=== PATIENT | male | born 1980 | race Hispanic/Latino ===

== ENCOUNTER 2018-06-19 10:36 | Emergency (ER) | payer MEDICAID, OTHER ==
[2018-06-19 10:44] VITALS: BMI 43.2
[2018-06-19] MEDS ORDERED: Sodium Chloride 0.9% 1,000 ML IV STA (10:52)
--- NOTE | 2018-06-19 10:52 | ED PDOC ---
Arrival/HPI - History of Present Illness Narrative History of Present Illness (Text): 06/19/18 10:45 38 y/o male with PMH of substance abuse, diabetes, and testicular cancer (s/p resection last year) presents to the ED for evaluation of anxiety. Last heroin use 2 days ago, using intermittently prior to that, both heroin and prescription narcotics. States he has been experiencing withdrawal symptoms and recurrent [place] ic attacks over the last few days, including diarrhea, nausea, and abdominal cramping. Took a suboxone this morning that was given to him by a friend. No current physical complaints but wishes to speak to someone about his recent panic attacks and feeling overwhelmed. States he was unable to sleep last night. Has no PMD and is not on any medications. Denies SI, HI, hallucinations, alcohol use, fevers, chills, chest pain, diaphoresis, palpitations, SOB, headache, vision changes, dizziness, abdominal pain, N/V, or any other associated symptoms. Past Medical History - Pulmonary Hx Sleep Apnea: Yes - Musculoskeletal/Rheumatological Hx Back Pain: Yes Hx Falls: No Hx Herniated Disk: Yes - Psychiatric Hx Anxiety: Yes Hx Depression: Yes Hx Emotional Abuse: No Hx Physical Abuse: No Hx Substance Use: Yes - Suicidal Assessment Feels Threatened In Home Enviroment: No Family/Social History - Physician Review Nursing Documentation Reviewed: Yes Family/Social History: No Known Family HX Smoking Status: Current Some Days Smoker Hx Alcohol Use: Yes (occasional) Hx Substance Use: Yes Hx Substance Use Treatment: Yes Allergies/Home Meds Allergies/Adverse Reactions: Allergies Sulfa (Sulfonamide Antibiotics) Allergy (Verified 06/19/18 10:45) RASH Review of Systems - Physician Review All systems were reviewed & negative as marked: Yes - Review of Systems Constitutional: Normal. absent: Fevers Eyes: Normal. absent: Vision Changes ENT: Normal Respiratory: Normal. absent: SOB, Cough Cardiovascular: Normal. absent: Chest Pain, Palpitations, Edema, Syncope Gastrointestinal: Abdominal Pain. absent: Nausea, Vomiting Genitourinary Male: Normal. absent: Dysuria, Frequency Musculoskeletal: Normal. absent: Back Pain, Neck Pain Skin: Normal. absent: Rash, Cellulitis Neurological: Normal. absent: Headache, Dizziness Endocrine: Normal Hemo/Lymphatic: Normal Psychiatric: Anxiety, Depression. absent: Suicidal Ideation Physical Exam Vital Signs Reviewed: Yes Temperature: Afebrile Blood Pressure: Normal Pulse: Regular Respiratory Rate: Normal Appearance: Positive for: Well-Appearing, Non-Toxic, Comfortable Pain Distress: None Mental Status: Positive for: Alert and Oriented X 3 - Systems Exam Head: Present: Atraumatic, Normocephalic Pupils: Present: PERRL Extroacular Muscles: Present: EOMI Conjunctiva: Present: Normal Mouth: Present: Moist Mucous Membranes Pharnyx: Present: Normal Nose (External): Present: Atraumatic Nose (Internal): Present: Normal Inspection Neck: Present: Normal Range of Motion. No: Meningeal Signs, MIDLINE TENDERNESS, Paraspinal Tenderness Respiratory/Chest: Present: Clear to Auscultation, Good Air Exchange. No: Respiratory Distress, Accessory Muscle Use, Wheezes, Decreased Breath Sounds, Rales, Retracting, Rhonchi Cardiovascular: Present: Regular Rate and Rhythm, Normal S1, S2, Peripheal Pulses Present. No: Murmurs Abdomen: Present: Normal Bowel Sounds. No: Tenderness, Distention, Peritoneal Signs, Rebound, Guarding Back: Present: Normal Inspection. No: CVA Tenderness, Midline Tenderness, Paraspinal Tenderness Upper Extremity: Present: Normal Inspection, Normal ROM, NORMAL PULSES, Neurovascularly Intact, Capillary Refill < 2s. No: Cyanosis, Edema, Swelling, Erythema Lower Extremity: Present: Normal Inspection, NORMAL PULSES, Normal ROM, Neurovascularly Intact, Capillary Refill < 2 s. No: Edema, Swelling, Erythema Neurological: Present: GCS=15, CN II-XII Intact, Speech Normal, Motor Func Grossly Intact, Normal Sensory Function, Gait Normal, Memory Normal Skin: Present: Warm, Dry, Normal Color. No: Rashes, Hot Lymphatic: No: Cervical Adenopathy Psychiatric: Present: Alert, Oriented x 3, Normal Insight, Normal Concentration, Anxious. No: Agitated, Depressed Mood, Suicidal Ideation, Homicidal Ideation, Hallucinations Medical Decision Making ED Course and Treatment: Initial Plan: * CBC, CMP * Acetaminophen, Alcohol, Salicylate * UDS * UA * EKG * CXR * IVF * Crisis Eval No physical complaints. Patient in no acute distress, laying comfortably in stretcher. CBC: WBC 18, otherwise unremarkable CMP: Glucose 232, patient known diabetic not on medication. Otherwise unremarkable. Acetaminophen: neg Alcohol: neg Salicylate: neg UDS: opiates, methamphetamine UA: ketones, protein, otherwise wnl CXR: no active disease EKG read by ED attending Dr. Kennedy as normal. Patient medically cleared for psychiatric evaluation. 13:15 EILEEN Mcdermott evaluated patient at bedside and advises that patient is psychiatrically cleared for discharge home with diagnosis of anxiety. Given appropriate resources for followup. 13:[address] Kennedy evaluated patient at bedside after discussion of diagn ostic testing results. States patient is clear for discharge home with followup with primary doctor or clinic. Advises to prescribe Clonidine 0.1mg q8h x 7 days prn withdrawal, Immodium, Zofran, and Narcan nasal spray for emergency use. Plan of care discussed with patient, and strict instructions given regarding prescriptions, importance of follow up, and signs to return to Emergency Department, to include chest pain, SOB, abdominal pain, or any other new/worsening symptoms. Patient verbalizes understanding of discussion. Patient A&Ox3, ambulating with steady gait, stable for discharge home. Impression: Substance abuse withdrawal Adjustment Disorder with Anxiety - Lab Interpretations Narrative Lab Interpretation (Text): 06/19/18 21:41 06/19/18 11:00 06/19/18 11:00 Lab Results 06/19/18 13:51: POC Glucose (mg/dL) 128 H 06/19/18 11:30: Urine Opiates Screen Positive H, Urine Methadone Screen Negative, Ur Barbiturates Screen Negative, Ur Phencyclidine Scrn Negative, Ur Amphetamines Screen Positive H, U Benzodiazepines Scrn Negative, U Oth Cocaine Metabols Negative, U Cannabinoids Screen Negative 06/19/18 11:30: Urine Color Yellow, Urine Appearance Clear, Urine pH 5.5, Ur S pecific [place] >= 1.030, Urine Protein Trace H, Urine Glucose (UA) Negative, Urine Ketones 15 H, Urine Blood Negative, Urine Nitrate Negative, Urine Bilirubin Negative, Urine Urobilinogen 0.2, Ur Leukocyte Esterase Negative, Urine RBC 0 - 2, Urine WBC 1 - 3, Ur Epithelial Cells 0 - 2, Urine Bacteria Mod 06/19/18 11:00: Alcohol, Quantitative < 10 06/19/18 11:00: Salicylates < 1 L, Acetaminophen < 10.0 L 06/19/18 11:00: Sodium 140, Potassium 4.5, Chloride 107, Carbon Dioxide 24, Anion Gap 14, BUN 11, Creatinine 0.7 L, Est GFR ( Amer) > 60, Est GFR (Non-Af Amer) > 60, Random Glucose 232 H, Calcium 10.1, Total Bilirubin 0.4, AST 23, ALT 22, Alkaline Phosphatase 75, Total Protein 8.2, Albumin 4.7, Globulin 3.5, Albumin/Globulin Ratio 1.3 06/19/18 11:00: WBC 18.0 H, RBC 5.71, Hgb 16.6, Hct 48.2, MCV 84.4, MCH 29.1, MCHC 34.4, RDW 13.7, Plt Count 432, MPV 8.8, Gran % 81.2 H, Lymph % (Auto) 13.0 L, [place] % (Auto) 4.8, Eos % (Auto) 0.6 L, Baso % (Auto) 0.4, Gran # 14.62 H, Lymph # (Auto) 2.3, [place] # (Auto) 0.9 H, Eos # (Auto) 0.1, Baso # (Auto) 0.07 I have reviewed the lab results: Yes Interpretation: Abnormal lab values (Elevated WBC count discussed with Dr. Kennedy, who evaluated patient at bedside. Recommends no further intervention, and followup outpatient.) - RAD Interpretation [employer] Worker: Radiologist - EKG Interpretation EKG Interpretation (Text): Interpreted by ED Attending Dr. Kennedy. Rate 61; NSR; normal intervals; No signs of acute ischemia. Interpreted by ED Physician: Yes Type: 12 lead EKG Comparison: No previous EKG avail. Disposition/Present on Arrival - Present on Arrival Any Indicators Present on Arrival: No History of DVT/PE: No History of Uncontrolled Diabetes: Yes Urinary Catheter: No History of Decub. Ulcer: No History Surgical Site Infection Following: None - Disposition Have Diagnosis and Disposition been Completed?: Yes Diagnosis: Substance abuse withdrawal Disposition: HOME/ ROUTINE Disposition Time: 14:00 Patient Plan: Discharge Condition: STABLE Discharge Instructions (ExitCare): Drug Abuse and Drug Addiction (DC), Drug Withdrawal (DC) Additional Instructions: Increase fluids to stay hydrated Avoid drug use Take zofran every 8 hours as needed for nausea Take clonidine every 8 hours as needed for withdrawal anxiety Take immodium after loose stool as needed, max 8 pills a day Narcan nasal spray as needed for opioid overdose Followup with [facility] or [facility] as directed Followup with clinic within 2 days Return to ER for any new/worsening symptoms Prescriptions: cloNIDine [Catapres] 0.1 mg PO Q8H PRN #21 tab PRN Reason: withdrawal Loperamide [Imodium] 2 mg PO Q6H PRN #28 cap PRN Reason: Diarrhea Naloxone HCl [Narcan] 4 mg NS ONCE PRN #1 spray PRN Reason: opioid overdose Ondansetron HCl [Zofran] 4 mg PO Q8H #21 tablet Referrals: Caro Mendoza MD [Medical Doctor] - Follow up with primary [facility] [Outside] - Follow up with primary Forms: [employer] (Kyrgyz)
[2018-06-19 11:13] LABS: BASO # 0.07 K/mm3 (0.0-2.0); BASO % 0.4 % (0.0-3.0); EOS # 0.1 (0.0-0.7); EOS % 0.6 % (1.5-5.0); GRAN # 14.62 (1.4-6.5); GRAN % 81.2 % (50.0-68.0); HEMOGLOBIN 16.6 g/dL (14.0-18.0); LYMPH # 2.3 (1.2-3.4); MEAN CELL VOLUME 84.4 fl (80.0-105.0); MEAN CORPUSCULAR HEMOGLOBIN 29.1 pg (25.0-35.0); MEAN CORPUSCULAR HGB CONC 34.4 g/dl (31.0-37.0); MEAN PLATELET VOLUME 8.8 fl (7.0-11.0); MONO # 0.9 (0.1-0.6); MONO % 4.8 % (1.0-6.0); RBC 5.71 10^6/uL (3.5-6.1); RED CELL DISTRIBUTION WIDTH 13.7 % (11.5-14.5)
[2018-06-19 11:19] LABS: ACETAMINOPHEN < 10.0 ug/ml (10.0-20.0); ALB/GLOB RATIO 1.3 (1.1-1.8); ALBUMIN 4.7 g/dL (3.0-4.8); ALT/SGPT 22 U/L (7-56); AST/SGOT 23 U/L (17-59); BLOOD UREA NITROGEN 11 mg/dL (7-21); CALCIUM 10.1 mg/dL (8.4-10.5); GFR NON-AFRICAN AMERICAN > 60; SALICYLATE < 1 mg/dL (2.0-20.0)
--- NOTE | 2018-06-19 11:59 | RAD ---
Date of service: 06/19/2018 HISTORY: psych COMPARISON: A totally mobile FINDINGS: LUNGS: No active pulmonary disease. PLEURA: No significant pleural effusion identified, no pneumothorax apparent. CARDIOVASCULAR: No atherosclerotic calcification present Normal. OSSEOUS STRUCTURES: No significant abnormalities. VISUALIZED UPPER ABDOMEN: Normal. OTHER FINDINGS: None. IMPRESSION: No active disease.
[2018-06-19 12:12] LABS: PH,URINE 5.5 (4.7-8.0); URINE BILIRUBIN NEGATIVE (NEGATIVE); URINE BLOOD NEGATIVE (NEGATIVE); URINE GLUCOSE (UA) NEGATIVE (NEGATIVE); URINE LEUKOCYTE ESTERASE NEGATIVE Leu/uL (NEGATIVE); URINE PROTEIN TRACE mg/dL (<30 mg/dL); URINE UROBILINOGEN 0.2 E.U./dL (<1 E.U./dL)
[2018-06-19 12:13] LABS: URINE APPEARANCE CLEAR (CLEAR); URINE COLOR YELLOW (YELLOW)
[2018-06-19 12:23] LABS: PHENCYCLIDINE, UR NEGATIVE (NEGATIVE)
[2018-06-19 12:25] LABS: URINE RBC 0 - 2 /hpf (0-2)
[2018-06-19 12:26] LABS: URINE BACTERIA MOD (NEG); URINE EPITHELIAL CELLS 0 - 2 /hpf (0-5)
[2018-06-19 13:08] LABS: BARBITURATES, UR NEGATIVE (NEGATIVE); BENZODIAZEPINES, UR NEGATIVE (NEGATIVE); OPIATES, UR POSITIVE (NEGATIVE)
--- NOTE | 2018-06-19 13:56 | CARD ---
APPROVED REPORT Date of service: 06/19/2018 EKG Measurement Heart [id number] <Conclusion> Normal sinus rhythm Inferior infarct, age undetermined PRWP LAD
[2018-06-19 14:54] VITALS: BP 129/88; PULSE 75; RESP 18; TEMP 98; O2SAT 99
== END 2018-06-19 14:54 | disposition home or self-care (01) ==
LOC: ED 10:36
DX: F19.939 Other psychoactive substance use, unspecified with withdrawal, unspecified (principal); E11.9 Type 2 diabetes mellitus without complications; F41.9 Anxiety disorder, unspecified; F32.9 Major depressive disorder, single episode, unspecified
CPT/HCPCS: 71045; 80053; 81001; 82948; 85025; 90791; 93005; 96360; 99284; G0480; J7030